=== PATIENT | male | born 1950 | race Caucasian/White ===

== ENCOUNTER 2016-12-14 05:10 | Inpatient (IN) | payer MEDICARE, OTHER ==
[~2016-12-14] VITALS: Ht 185.4 cm; Wt 81.6 kg
--- NOTE | 2016-12-14 05:15 | NUR ---
BIBSELF C/O CHEST PAIN SINCE 3:30AM. PT STATES "FEELING CRUMMY" PT AOX3 RR EVEN AND UNLABORED. NO SOB NOTED. NAD NOTED. NO NVD AT THIS TIME. PT NOT DIAPHORETIC. PT GOWNED AND PLACED ON MONTIOR. DR BOWDEN AT BEDSIDE FOR EVAL.
[2016-12-14 05:28] LABS: BASOPHILS # (AUTO) 0.1 /CMM (0.0-0.2); BASOPHILS % (AUTO) 0.8 % (0.0-2.0); EOSINOPHILS # (AUTO) 0.2 /CMM (0.0-0.7); EOSINOPHILS % (AUTO) 2.3 % (0.0-6.0); HEMATOCRIT 45 % (39-51); HEMOGLOBIN 14.6 g/dL (13.5-17.5); LYMPHOCYTES # (AUTO) 2.3 /CMM (0.8-4.8); LYMPHOCYTES % (AUTO) 32.6 % (20.0-44.0); MEAN CORPUSCULAR HEMOGLOBIN 31 PG (26.0-33.0); MEAN CORPUSCULAR HGB CONC 33 g/dl (31.0-36.0); MEAN CORPUSCULAR VOLUME 95 fL (80-96); MONOCYTES # (AUTO) 0.6 /CMM (0.1-1.30); MONOCYTES % (AUTO) 8.7 % (2.0-12.0); NEUTROPHILS % (AUTO) 55.6 % (43.0-81.0); PLATELET COUNT (AUTO) 241 /CMM (150-450); RDW COEFFICIENT OF VARIATION 12.8 (11.5-15.0); WHITE BLOOD COUNT (AUTO) 7.2 K/uL (4.3-11.0)
[2016-12-14] MEDS ORDERED: NITROGLYCERIN 0.4 MG/TAB BOTTLE ONE (05:28)
[2016-12-14] MEDS ORDERED: ASPIRIN 325 MG TABLET ONE (05:28)
[2016-12-14] MEDS ORDERED: ASPIRIN 325 MG TABLET PO ONE (05:30)
[2016-12-14] MEDS ORDERED: NITROGLYCERIN 0.4 MG/TAB BOTTLE SL ONE (05:30)
--- NOTE | 2016-12-14 05:32 | NUR ---
RADIOLOGY AT BEDSIDE FOR CHEST XR
--- NOTE | 2016-12-14 05:35 | NUR ---
PT GIVEN NITRO 0.4MG 2ND TAB SL FOR CP 5/10.
[2016-12-14 05:36] LABS: CALCIUM, SERUM 8.9 mg/dL (8.5-10.1); CARBON DIOXIDE 30 mmol/L (21-32); CHLORIDE 107 mmol/L (98-107); CREATININE 0.9 mg/dL (0.6-1.3); GLUCOSE 146 mg/dL (74-106); SODIUM SERUM 145 mmol/L (136-145); UREA NITROGEN, BLOOD 23 mg/dL (7-18)
--- NOTE | 2016-12-14 05:40 | NUR ---
PT DENIES CP AT THIS TIME. DR. BOWDEN AT BEDSIDE
[2016-12-14 05:43] LABS: D-DIMER 0.81 mg/L(FEU (0.17-0.50); INR 0.92 (0.87-1.13); PROTHROMBIN TIME 9.6 SECS (9.5-12.7)
[2016-12-14] MEDS ORDERED: Magnesium 1GM/D5W 100ML PREMIX 200 ML IV ONE (05:43)
[2016-12-14 05:44] LABS: TROPONIN I < 0.017 ng/mL (0.00-0.056)
[2016-12-14] MEDS ORDERED: CT SWABBABLE VALVE TRANS SET 1 EA INFUS.SET MC ONE (06:00)
[2016-12-14] MEDS ORDERED: Magnesium 1 GM/2 ML VIAL IV ONE (06:00)
[2016-12-14] MEDS ORDERED: POTASSIUM CHLORIDE 20 MEQ TAB.PRT.SR PO ONE ×2 (06:00→06:07)
[2016-12-14] MEDS ORDERED: IOHEXOL-350 100 ML VIAL IV ONE (06:00)
[2016-12-14] MEDS ORDERED: IV NS 0.9% 1,000 ML BAG IV ONE (06:00)
[2016-12-14] MEDS ORDERED: IV NS 0.9% 0 ML IV ONE (06:00)
--- NOTE | 2016-12-14 06:11 | NUR ---
GIRLFRIEND AT BEDSIDE.
--- NOTE | 2016-12-14 07:05 | NUR ---
REPORT GIVEN TO NANCY BURNS FOR [facility].
--- NOTE | 2016-12-14 07:22 | NUR ---
CALLED JARET FOR VQ SCAN F/U. VM LEFT.
--- NOTE | 2016-12-14 07:30 | NUR ---
per vish, isotope is not available until 0900. Dr Pak notified. Panel call placed. Addendum: 12/14/[address] pak on phone with dr jeffers
--- NOTE | 2016-12-14 08:00 | NUR ---
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 PRESENTED TO THE ER FOR CHEST PAIN. PATIENT STATES NO PAIN AT THIS TIME NOR DOES HE STATE ANY CHEST PAIN. ABLE TO COMMUNICATE NEEDS. CALL LIGHT WITHIN REACH. SAFETY MEASURES IMPLEMENTED. IV ON LEFT AC 20G INTACT AND PATENT FLUSHES WELL. IODINE ALLERGY. ALL BELONGINGS AT BEDSIDE AND ACCOUNTED FOR. ARRIVED TO THE UNIT VIA GURNEY. AWAITING TO HAVE SCAN DONE, POSITIVE D-DIMER. MD AWARE. STILL AWAITING ORDERS. WILL CONTINUE TO MONITOR
--- NOTE | 2016-12-14 08:03 | NUR ---
PATIENT TRANSFERRED TO 3RD FLOOR IN STABLE CONDITION VIA ACLS PROTOCOL
[2016-12-14 09:00] VITALS: BP 108/72
[2016-12-14] MEDS ORDERED: ONDANSETRON HCL/PF 4 MG/2 ML VIAL IVP PRN (12:00)
[2016-12-14] MEDS ORDERED: ZOLPIDEM TARTRATE 5 MG TABLET PO PRN (12:00)
[2016-12-14] MEDS ORDERED: ACETAMINOPHEN 325 MG TABLET PO PRN (12:00)
[2016-12-14] MEDS ORDERED: HYDROCODONE/APAP 5/325MG 1 EACH TABLET PO PRN (12:00)
[2016-12-14] MEDS ORDERED: MAG HYDROX/AL HYDROX/SIMETH 30 ML UDC PO PRN (12:00)
[2016-12-14] MEDS ORDERED: MAGNESIUM HYDROXIDE 30 ML UDC PO PRN (12:00)
[2016-12-14] MEDS ORDERED: Z GUARD REMEDY 2 OZ OINT TP PRN (12:00)
--- NOTE | 2016-12-14 12:55 | NUR ---
REEL WINDER NOTE PATIENT IS ALERT AND ORIENTED x4. NO PAIN AT THIS TIME. NO SOB OR DISTRESS NOTED. CALL LIGHT WITHIN REACH AT ALL TIMES. SAFETY MEASURES IMPLEMENTED. ABLE TO COMMUNICATE NEEDS. PATIENT INFORMED ME THAT HE NO LONGER WANTED TO STAY IN THE HOSPITAL, THAT HE JUST WANTED TO GO HOME. INFORMED , ABOUT PATIENT. EXPLAINED RISKS AND BENEFITS OF PATIENT LEAVING HOSPITAL. PATIENT UNDERSTOOD INSTRUCTIONS AND STILL DECIDED ON GOING HOME WITH FAMILY. ALL BELONGINGS WITH PATIENT. LEFT VIA PRIVATE CAR WITH AND DAUGHTER. Unique Id: [id number]
[2016-12-15] MEDS ORDERED: ASPIRIN EC 81 MG TABLET.DR PO SCH (09:00)
== END 2016-12-14 12:59 | disposition left against medical advice (07) | DRG 313 ==
LOC: ER 05:13 → TELE 10:37
DX: R07.89 Other chest pain (principal); E87.6 Hypokalemia; Z91.041 Radiographic dye allergy status; R73.9 Hyperglycemia, unspecified
CPT/HCPCS: 36415; 71010-TC; 78582; 80048-TC; 84484-TC; 85025-TC; 85378-TC; 85730-TC; 87081-TC; A4606; A9540; A9567; J3475; J7030; J7050; Q9967; Z7610